=== PATIENT | female | born 1990 | race African-American/Black ===

== ENCOUNTER 2018-03-28 08:45 | Emergency (ER) | payer MEDICAID ==
[~2018-03-28] VITALS: Ht 162.6 cm; Wt 91.0 kg
[~2018-03-28 08:45] MED LIST: ETHI1TAB26 MT; FERR325T23 PO
[2018-03-28 08:54] VITALS: BP 131/77
== END 2018-03-28 09:44 | disposition home or self-care (01) ==
LOC: ER 09:00
DX: L30.9 Dermatitis, unspecified (principal); D64.9 Anemia, unspecified; F12.10 Cannabis abuse, uncomplicated; F17.200 Nicotine dependence, unspecified, uncomplicated; Z98.890 Other specified postprocedural states; Z79.899 Other long term (current) drug therapy
CPT/HCPCS: 99282